=== PATIENT | male | born 1995 | race Caucasian/White ===

== ENCOUNTER 2017-07-20 10:33 | Emergency (ER) | payer MEDICAID ==
[~2017-07-20] VITALS: Ht 165.1 cm; Wt 52.0 kg
[2017-07-20 10:34] VITALS: BP 128/84
[2017-07-20] MEDS ORDERED: DIPH,PERTUSS(ACELL),TET VAC/PF 0.5 ML IM-VACC ONE ×2 (10:58→11:00)
[2017-07-20] MEDS ORDERED: LIDOCAINE-MPF 1%, 5ML ONE (10:58)
[2017-07-20] MEDS ORDERED: LIDOCAINE 2%, 20ML SQ ONE (11:00)
[2017-07-20] MEDS ORDERED: ALPR0.25 PO (11:09)
[2017-07-20] MEDS ORDERED: FLUO10CA13 PO (11:10)
[2017-07-20] MEDS ORDERED: BACITRACIN ZINC OINT 500U/GM, 0.9 GM ONE (11:43)
== END 2017-07-20 12:14 | disposition home or self-care (01) ==
LOC: ED 12:00
DX: S61.211A Laceration without foreign body of left index finger without damage to nail, initial encounter (principal); W26.0XXA Contact with knife, initial encounter; Y93.89 Activity, other specified; Y92.89 Other specified places as the place of occurrence of the external cause; Y99.8 Other external cause status
CPT/HCPCS: 12001; 90471; 90715